=== PATIENT | female | born 1980 | race Hispanic/Latino ===

== ENCOUNTER 2023-07-24 19:26 | Emergency (ER) | payer SELFPAY ==
[2023-07-24 19:29] VITALS: BP 100/76
[2023-07-24] MEDS: MOTRIN 600 MG PO (21:52)
[2023-07-24] MEDS: TYLENOL 650 MG PO (21:53)
[2023-07-24 21:54] VITALS: BMI 40.8
--- NOTE | 2023-07-24 22:14 | ED.GENMED ---
History of Present Illness
General
Chief Complaint: Musculo-Skeletal Complaint
Source: patient
Exam Limitations: none
Time Seen by Provider: 07/24/23 21:00
Nursing documentation reviewed up to this point in time: agreed with
Travel History
Have you had any contact with someone who has COVID-19?: No
Do you have any symptoms of coronavirus? Fever > 100 degrees, chills, cough, shortness of breath, sore throat, loss of taste or smell, muscle aches, or headache?: No
History of Present Illness
History of Present Illness:
43-year-old female presenting to the emergency department after twisting her left ankle prior to arrival. Difficulty walking since. Denies additional injuries no additional fall discomfort mainly to the lateral malleolus. No numbness or weakness.
Review of Systems
Review of Systems
Allergies reviewed?: Yes
All Other Systems: ROS reviewed and negative except as documented in HPI and ROS
Phy Exam
Physical Exam
Physical Exam:
GENERAL: Alert , in no apparent distress
EYE: pupils equal and reactive
NECK: Supple, no significant adenopathy.
ENT: o/p clr, mmm.
CARDIAC: Regular rate and rhythm .
LUNGS: Clear breath sounds bilaterally, no acute respiratory distress, no wheezes/rales/rhonchi
ABDOMEN: Soft, without focal tenderness, no r/g, no cvat
NEUROLOGICAL: Alert and oriented, no focal neuro deficits
SKIN: Warm and dry, skin intact.
MUSCULOSKELETAL: Swelling edema to the left lateral ankle mainly to the area just anterior to the lateral malleolus increased discomfort with inversion of the no tenderness to the medial malleolus of the remainder of the foot no tenderness to the
tib-fib or knee well perfused.
PSYCH: Normal and appropriate interaction.
Course
Orders/Labs/Results
Orders:
Orders
07/24/23 19:33
Ankle, left 3 view CR [CR Ankle - Left Min 3 Views ] Urgent
Comment:
Reason For Exam: injury and pain
07/24/23 21:46
Acetaminophen [Tylenol] 650 mg PO NOW STA
Ibuprofen [Motrin] 600 mg PO NOW STA
07/24/23 21:47
Crutches-Treatment ONCE
boot [Ortho Boot Left- Treatment] ONCE
Short or tall?: Tall
Vital Signs
Initial and Last Documented VS:
Initial Vital Signs
Temp Pulse Resp BP Pulse Ox
98.4 F 88 18 100/76 100
07/24/23 19:29 07/24/23 19:29 07/24/23 19:29 07/24/23 19:29 07/24/23 19:29
Last Documented Vital Signs
Temp Pulse Resp BP Pulse Ox
98.4 F 88 18 100/76 100
07/24/23 19:29 07/24/23 19:29 07/24/23 19:29 07/24/23 19:29 07/24/23 19:29
MDM/Problems Addressed
MDM/Problems Addressed:
43-year-old female presenting to the emergency department today with concerns of left ankle discomfort after twisting her ankle prior to arrival. This was an inversion injury and tender palpation is mainly to the area just anterior to the lateral
malleolus. Symptoms consistent with an ankle sprain. X-ray without signs of fracture. Patient advised to rest ice compress and elevate and given information for orthopedic follow-up. Return precautions given.
*Critical Care Note
Total Time (30-74mins, 75-104mins- exclusive of procedures): Not Applicable
ED Attending Note
-
Portions of this chart may have been created with voice recognition software.� Occasional wrong word or��sound alike� substitutions may have occurred due to the inherent limitations of voice recognition software.
Discharge Plan
Departure
Patient Disposition: Home (Routine Discharge)
Date of Disposition: 07/24/23
Time of Disposition: 22:14
Patient with high blood pressure during this ER visit?: No
Condition: Good
Covid-19: Not Applicable
Discharge Problem:
Ankle sprain
Instructions: Ankle Sprain (DC)
Prescriptions:
New
ibuprofen 600 mg tablet
600 mg PO Q6H PRN (Reason: Pain) Qty: 14 0RF
Referrals:
Sunil Medrano DPM [Active] - Follow up in 10 days
UNKNOWN - PT DOES,NOT KNOW [Family Provider] -
Activity Restrictions/Additional Instructions:
You came to the emergency department today with concerns of ankle discomfort. You are found to have an ankle sprain. Please rest ice compress and elevate as symptoms will hopefully improve over the next few days. Please follow closely with
orthopedics as needed. Return to the emergency department for any worsening, new or concerning symptoms.
Interventions
Interventions:
*Risk Screen - Suicide Last Done: 07/24/23 19:29
*General Assessment Last Done: 07/24/23 19:29
*Neglect/Abuse Screening Last Done: 07/24/23 19:29
ED- Fall Risk Assessment Last Done: 07/24/23 19:29
*ED COVID-19 Vaccine History Last Done: 07/24/23 19:29
ED-Musculoskeletal Assessment Last Done: 07/24/23 21:46
[2023-07-24 22:48] VITALS: BP 110/70
== END 2023-07-24 22:49 | disposition home or self-care (01) ==
LOC: EMR 19:26
PROVIDERS: EMERGENCY PHYSICIAN Emergency Medicine
DX: S93.409A Sprain of unspecified ligament of unspecified ankle, initial encounter (principal); X50.1XXA Overexertion from prolonged static or awkward postures, initial encounter
CPT/HCPCS: 99283; 29515; 73610